=== PATIENT | female | born 2000 | race Caucasian/White ===

== ENCOUNTER 2021-02-04 11:27 | Emergency (ER) | payer OTHER, SELFPAY ==
[~2021-02-04] VITALS: Ht 152.4 cm; Wt 45.9 kg
[2021-02-04 12:30] LABS: BASO # 0.1 10^3/uL (0.0-0.2); BASO % 0.7 % (0.0-1.0); EOS # 0.1 10^3/uL (0.0-0.5); HEMATOCRIT 42.9 % (36.0-47.0); HEMOGLOBIN 14.6 g/dl (12.0-15.5); LYMPH # 2.1 10^3/uL (1.5-5.0); LYMPH % 19.2 % (24.0-44.0); MEAN CORPUSCULAR HEMOGLOBIN 30.5 pg (27.0-33.0); MEAN CORPUSCULAR VOLUME 89.6 fl (80.0-96.0); MONO % 8.8 % (2.0-8.0); NEUTROPHILS # 7.7 10^3/uL (1.5-8.5); PLATELET COUNT, AUTOMATED 280 10^3/uL (150-450); RED BLOOD COUNT 4.79 10^6/uL (4.00-5.40)
--- NOTE | 2021-02-04 13:06 | REP ---
INDICATION: bleeding COMPARISON: None. TECHNIQUE: Transabdominal and transvaginal 1st trimester obstetrical ultrasound with color Doppler evaluation. FINDINGS: Heterogeneous anteverted possibly septated uterus measures 8.4 x 4.9 x 6.2 cm. A presumed empty gestational sac is identified. Mean sac diameter of 10.6 mm corresponds to 5 weeks 5 days. No pole or yolk sac identified. Right ovary not visualized. Left ovary appears normal and without torsion measuring 3.1 x 2.0 x 2.3 cm (RI 0.60). No pelvic fluid or adnexal mass lesion. IMPRESSION: Differential diagnosis includes blighted ovum versus early . Correlation with serial HCG levels and repeat ultrasound should be considered. <Electronically signed by Shelton Vick > 02/04/21 [id number]
[2021-02-04 13:18] LABS: ALBUMIN 4.2 GM/DL (3.2-5.2); ALT/SGPT 21 U/L (12-78); BILIRUBIN,DIRECT 0.3 MG/DL (0.0-0.2); BILIRUBIN,TOTAL 0.4 MG/DL (0.2-1.0); BLOOD UREA NITROGEN 7 MG/DL (7-18); CALCIUM LEVEL 10.1 MG/DL (8.5-10.1); CARBON DIOXIDE LEVEL 22 MEQ/L (21-32); CHLORIDE LEVEL 108 MEQ/L (98-107); CREATININE FOR GFR 0.57 MG/DL (0.55-1.30); GLUCOSE, FASTING 84 MG/DL (70-100); HCG, SERUM QUANTITATIVE 14364 MIU/ML; LIPASE 97 U/L (73-393); POTASSIUM SERUM 4.2 MEQ/L (3.5-5.1); SODIUM LEVEL 140 MEQ/L (136-145); TOTAL PROTEIN 7.3 GM/DL (6.4-8.2)
[2021-02-04 14:26] LABS: GC DNA AMPLIFICATION NEGATIVE (NEGATIVE)
[2021-02-04] MEDS ORDERED: CEPH500C PO ×2 (14:37→14:38)
[2021-02-04] MEDS ORDERED: RHOGAM 300 MCG (1500 IU) INJ (J2790) IM ONE (14:45)
[2021-02-04 15:51] VITALS: BP 139/65
== END 2021-02-04 15:53 | disposition home or self-care (01) ==
LOC: M ED 11:27
DX: O20.8 Other hemorrhage in early pregnancy (principal); O23.41 Unspecified infection of urinary tract in pregnancy, first trimester; N39.0 Urinary tract infection, site not specified; Z67.91 Unspecified blood type, Rh negative; Z3A.00 Weeks of gestation of pregnancy not specified
CPT/HCPCS: 76801; 76817; 80048; 80076; 81001; 83690; 84702; 85025; 86850; 86900; 86901; 87086; 87210; 87661; 93976; 96372; 99284; J2790

== ENCOUNTER 2021-03-26 10:14 | Emergency (ER) | payer OTHER ==
[~2021-03-26] VITALS: Ht 152.4 cm; Wt 49.1 kg
[~2021-03-26 10:14] MED LIST: CEPH500C PO
[2021-03-26] MEDS ORDERED: PREN27TA3 (10:26)
[2021-03-26 14:09] LABS: BASO # 0.1 10^3/uL (0.0-0.2); BASO % 0.6 % (0.0-1.0); EOS # 0.1 10^3/uL (0.0-0.5); EOS % 1.6 % (0.0-3.0); HEMATOCRIT 40.8 % (36.0-47.0); HEMOGLOBIN 13.9 g/dl (12.0-15.5); LYMPH # 1.4 10^3/uL (1.5-5.0); LYMPH % 17.2 % (24.0-44.0); MEAN CORPUSCULAR HEMOGLOBIN 30.9 pg (27.0-33.0); MEAN CORPUSCULAR HGB CONC 34.1 g/dl (32.0-36.5); MEAN CORPUSCULAR VOLUME 90.7 fl (80.0-96.0); MONO # 0.4 10^3/uL (0.0-0.8); MONO % 5.4 % (2.0-8.0); NEUTROPHILS # 6.1 10^3/uL (1.5-8.5); NEUTROPHILS % 74.7 % (36.0-66.0); PLATELET COUNT, AUTOMATED 223 10^3/uL (150-450); WHITE BLOOD COUNT 8.2 10^3/uL (4.0-10.0)
[2021-03-26 14:30] LABS: BLOOD UREA NITROGEN 5 MG/DL (7-18); CALCIUM LEVEL 9.7 MG/DL (8.5-10.1); CARBON DIOXIDE LEVEL 25 MEQ/L (21-32); CHLORIDE LEVEL 107 MEQ/L (98-107); CREATININE FOR GFR 0.42 MG/DL (0.55-1.30); GLUCOSE, FASTING 81 MG/DL (70-100); POTASSIUM SERUM 4.5 MEQ/L (3.5-5.1); SODIUM LEVEL 138 MEQ/L (136-145)
--- NOTE | 2021-03-26 14:44 | REP ---
INDICATION: vag bleeding COMPARISON: None. TECHNIQUE: Transabdominal 1st trimester obstetrical ultrasound with color Doppler evaluation. FINDINGS: Single live early intrauterine is appreciated. Gestational sac with pole identified. [place]-rump length of 6.9 cm corresponds to 13 weeks 1 day gestational age with estimated date of delivery 09/30/2021. heart rate equals 139 beats per minute. Subchorionic hemorrhage identified measuring 8.4 x 10.6 x 1.3 cm. IMPRESSION: Single live early intrauterine at 13 weeks 1 day gestational age. Subchorionic hemorrhage. Complete anatomical assessment should be performed and 19-20 weeks. <Electronically signed by Shelton Vick > 03/26/21 1839
[2021-03-26 14:50] LABS: APPEARANCE, URINE HAZY (CLEAR); BACTERIA, URINE AUTO 1+ (NEGATIVE); BILIRUBIN, URINE AUTO NEGATIVE (NEGATIVE); BLOOD, URINE BLOOD 1+ (NEGATIVE); COLOR, URINE YELLOW (YELLOW); GLUCOSE, URINE (UA) AUTO NEGATIVE (NEGATIVE); KETONE, URINE AUTO TRACE mg/dL (NEGATIVE); LEUKOCYTE ESTERASE, URINE AUTO 3+ (NEGATIVE); NITRITE, URINE AUTO POSITIVE (NEGATIVE); PROTEIN, URINE AUTO NEGATIVE (NEGATIVE); RBC, URINE AUTO 3 /HPF (0-3); SPECIFIC GRAVITY URINE AUTO 1.009 (1.002-1.035); SQUAMOUS EPITHELIAL CELL UR AU 3 /HPF (0-6); UROBILINOGEN, URINE AUTO 0.2 mg/dL (0.0-2.0); WBC, URINE AUTO 70 /HPF (0-3)
[2021-03-26] MEDS ORDERED: NITR-67 PO (15:10)
[2021-03-26 15:29] VITALS: BP 109/64
== END 2021-03-26 16:17 | disposition home or self-care (01) ==
LOC: M ED 10:14
DX: O20.9 Hemorrhage in early pregnancy, unspecified (principal); O23.42 Unspecified infection of urinary tract in pregnancy, second trimester; Z3A.13 13 weeks gestation of pregnancy; Z79.899 Other long term (current) drug therapy

== ENCOUNTER 2021-09-12 11:40 | Inpatient (IN) | payer OTHER ==
[2021-09-12] VITALS (31 sets, daily range): BP systolic 90–173; BP diastolic 45–100
[~2021-09-12] VITALS: Ht 152.4 cm; Wt 69.6 kg
[~2021-09-12 11:40] MED LIST changes: +NITR-67 PO; +PREN27TA3
[2021-09-12] MEDS ORDERED: CARBOPROST TROMETHAMINE 250 MCG/ML AMP IM PRN (13:05)
[2021-09-12] MEDS ORDERED: OXYTOCIN DRIP 30 UNITS in IV 1 EA IV PRN ×4 (13:05)
[2021-09-12] MEDS ORDERED: METHYLERGONOVINE MALEATE 0.2 MG/ML VIAL (J2210) IM PRN (13:05)
[2021-09-12] MEDS ORDERED: TRANEXAMIC ACID INJection 1,000 MG in NS 100 ML IV PRN (13:05)
[2021-09-12 13:57] LABS: HEMATOCRIT 33.5 % (36.0-47.0); HEMOGLOBIN 10.9 g/dl (12.0-15.5); MEAN CORPUSCULAR HEMOGLOBIN 31.1 pg (27.0-33.0); MEAN CORPUSCULAR HGB CONC 32.5 g/dl (32.0-36.5); MEAN CORPUSCULAR VOLUME 95.7 fl (80.0-96.0); PLATELET COUNT, AUTOMATED 280 10^3/uL (150-450); WHITE BLOOD COUNT 16.8 10^3/uL (4.0-10.0)
[2021-09-12] MEDS: LR 1,000 ML IV SCH ×2 (14:32→22:23)
[2021-09-12] MEDS ORDERED: BUTORPHANOL 2 MG/ML INJ (J0595) IV ONE (19:05)
[2021-09-12] MEDS ORDERED: PROMETHAZINE 25MG/ML 1ML VIAL IV ONE (19:05)
[2021-09-12] MEDS ORDERED: LR 1,000 ML IV ONE (21:25)
[2021-09-12] MEDS ORDERED: FENTANYL 2MCG/ML ROPIVACAINE 0.2% IN 0.9% NACL 100ML IVBAG As Ordered ONE (21:30)
[2021-09-12] MEDS ORDERED: ONDANSETRON 4MG/2ML VIAL IV PRN (22:10)
[2021-09-12] MEDS ORDERED: LACTATED RINGER'S 1000 ML IV PRN (22:10)
[2021-09-12] MEDS ORDERED: EPIDURAL/PCA KEYS XX PRN (22:10)
[2021-09-12] MEDS ORDERED: REFRIGERATOR IV KEYS XX PRN (22:10)
[2021-09-12] MEDS ORDERED: NALOXONE INJ 0.4MG/1ML VIAL (J2310 PER 1MG) IV PRN (22:10)
[2021-09-12] MEDS ORDERED: EPIDURAL COMMENT XX SCH (22:10)
[2021-09-12] MEDS ORDERED: diphenhydrAMINE 50MG/ML VIAL (J1200) IV PRN (22:10)
[2021-09-12] MEDS: FENTANYL/ROPIVACAINE/NACL BAG 100 ML EPIDURAL SCH (22:56)
[2021-09-13] VITALS (36 sets, daily range): BP systolic 88–180; BP diastolic 50–92
[2021-09-13] MEDS: ePHEDrine SULFATE 25 MG/5 ML(5MG/ML) SYRINGE IV PRN ×3 (00:06→00:12)
[2021-09-13] MEDS: LR 1,000 ML IV SCH (06:02)
[2021-09-13] MEDS: FENTANYL/ROPIVACAINE/NACL BAG 100 ML EPIDURAL SCH (06:26)
[2021-09-13] MEDS ORDERED: OXYTOCIN INJ 10 UNITS/ML VIAL (J2590) IV ONE ×2 (08:05→11:05)
[2021-09-13 10:08] LABS: CORD GAS ABE V -3.8; CORD GAS HCO3 V 21.1 MEQ/L; CORD GAS O2 SAT V 63.8 %; CORD GAS PCO2 V 38.1 mmHg; CORD GAS PH V 7.361 UNITS; CORD GAS SBC V 20.5 MEQ/L; CORD GAS TCO2 V 22.3 MEQ/L
[2021-09-13 10:09] LABS: CORD GAS ABE A -5.4; CORD GAS O2 SAT A 26.2 %; CORD GAS PCO2 A 50.2 mmHg; CORD GAS PH A 7.26 UNITS; CORD GAS PO2 A 14.9 mmHg; CORD GAS SBC A 18.5 MEQ/L; CORD GAS TCO2 A 23.6 MEQ/L
[2021-09-13] MEDS ORDERED: OXYTOCIN 30 UNITS IN 0.9% NaCl 500ML IV BAG (J2590) As Ordered ONE (10:29)
[2021-09-13] MEDS ORDERED: METHYLERGONOVINE MALEATE 0.2 MG TAB PO PRN (11:05)
[2021-09-13] MEDS ORDERED: MEASLES,MUMPS,RUBELLA VACCINE INJ (MMR-II) (90707) SC SCH (11:05)
[2021-09-13] MEDS ORDERED: RHOGAM 300 MCG (1500 IU) INJ (J2790) IM SCH (11:05)
[2021-09-13] MEDS ORDERED: OXYTOCIN DRIP 30 UNITS in IV 1 EA IV ONE (11:05)
[2021-09-13] MEDS ORDERED: ANUSOL HC CREAM 30GM TOP PRN (11:05)
[2021-09-13] MEDS ORDERED: LR 1,000 ML IV SCH (11:05)
[2021-09-13] MEDS ORDERED: OXYTOCIN DRIP 30 UNITS in IV 1 EA IV SCH (11:05)
[2021-09-13] MEDS ORDERED: ACETAMINOPHEN TAB 650MG DOSE (2X325MG) PO PRN (11:05)
[2021-09-13] MEDS ORDERED: DIBUCAINE 1% OINTMENT 30GM TOP PRN (11:05)
[2021-09-13] MEDS ORDERED: MOM 30ML SUSPENSION UDC PO PRN (11:05)
[2021-09-13] MEDS ORDERED: DOCUSATE SODIUM 100MG CAPSULE PO PRN (11:05)
[2021-09-13] MEDS: IBUPROFEN 600MG TAB PO PRN (11:32)
[2021-09-13] MEDS: ACETAMINOPHEN 500 MG TAB PO PRN (20:27)
[2021-09-14 06:00] VITALS: BP 124/89
[2021-09-14 09:52] LABS: HEMATOCRIT 30.3 % (36.0-47.0); MEAN CORPUSCULAR HEMOGLOBIN 30.6 pg (27.0-33.0); MEAN CORPUSCULAR VOLUME 92.7 fl (80.0-96.0); PLATELET COUNT, AUTOMATED 256 10^3/uL (150-450); RED BLOOD COUNT 3.27 10^6/uL (4.00-5.40); WHITE BLOOD COUNT 16.7 10^3/uL (4.0-10.0)
[2021-09-14] MEDS: PRENATAL VITAMINS CHEWABLE TABLET PO SCH (10:23)
[2021-09-14] MEDS: ACETAMINOPHEN 500 MG TAB PO PRN (10:24)
[2021-09-14 18:00] VITALS: BP 122/74
[2021-09-15 06:00] VITALS: BP 117/67
[2021-09-15] MEDS: PRENATAL VITAMINS CHEWABLE TABLET PO SCH (09:40)
[2021-09-15] MEDS: IBUPROFEN 600MG TAB PO PRN (09:41)
[2021-09-15] MEDS: ACETAMINOPHEN 500 MG TAB PO PRN (16:03)
== END 2021-09-15 18:30 | disposition home or self-care (01) | DRG 560 ==
LOC: M LDO 11:40 → M LDI 13:11 → M OBS 09-13 12:45
PROVIDERS: ADMIT Advanced Practice Midwife; ATTEND Advanced Practice Midwife
PROC: 10E0XZZ Delivery of Products of Conception, External Approach (ICD-10-PCS; principal; 2021-09-13)
DX: O22.13 Genital varices in pregnancy, third trimester (principal); Z37.0 Single live birth; Z3A.37 37 weeks gestation of pregnancy; O75.89 Other specified complications of labor and delivery